=== PATIENT | male | born 1985 | race Two or more races ===

== ENCOUNTER 2019-12-24 23:34 | Inpatient (IN) | payer MEDICAID, OTHER ==
[~2019-12-24] VITALS: Ht 167.6 cm; Wt 79.4 kg
--- NOTE | 2019-12-25 00:01 | NUR ---
PT IN XRAY AT THIS TIME
[2019-12-25 00:03] LABS: MEAN CORPUSCULAR HEMOGLOBIN 28.9 pg (27.5-34.5); MEAN CORPUSCULAR HGB CONC 33.5 g/dL (33.2-36.2); MEAN CORPUSCULAR VOLUME 86.3 fL (81-97); MEAN PLATELET VOLUME 7.5 fL (7.4-10.4); PLATELET COUNT 347 x10^3/uL (130-400); RED BLOOD COUNT 5.13 x10^6/uL (4.38-5.82); RED CELL DISTRIBUTION WIDTH 12.8 % (9.4-14.8)
[2019-12-25 00:14] LABS: ALANINE AMINOTRANSFERASE 51 U/L (12-78); ALBUMIN 3.4 g/dL (3.4-5.0); ANION GAP 9 mmol/L (5-15); CALCIUM 8.8 mg/dL (8.5-10.1); CHLORIDE 104 mmol/L (98-107)
[2019-12-25 00:17] LABS: ALKALINE PHOSPHATASE 100 U/L (45-117); BILIRUBIN,TOTAL 0.8 mg/dL (0.2-1.0); TOTAL PROTEIN 8.4 g/dL (6.4-8.2)
[2019-12-25] MEDS ORDERED: OMNIPAQUE 350 MG/ML, 100ML BOTTLE ONE (00:45)
[2019-12-25 00:56] LABS: BASOPHILS # (AUTO) 0.06 x10^3/uL (0-0.1); BASOPHILS % (AUTO) 0 % (0-1); EOSINOPHILS # (AUTO) 0.11 x10^3/uL (0-0.4); EOSINOPHILS % (AUTO) 1 % (1-7); LYMPHOCYTES # (AUTO) 2.08 x10^3/uL (1-3.4); LYMPHOCYTES % (AUTO) 12 % (22-44); MD SCAN; MONOCYTES # (AUTO) 1.48 x10^3/uL (0.2-0.8); MONOCYTES % (AUTO) 9 % (2-9); NEUTROPHILS # (AUTO) 13.36 x10^3/uL (1.8-6.8); NEUTROPHILS % (AUTO) 78 % (42-75)
[2019-12-25] MEDS ORDERED: SODIUM CHLORIDE 0.9% 1,000 ML IV ONE (01:50)
[2019-12-25] MEDS ORDERED: MORPHINE SULFATE 4 MG/ML, 1ML IVPush PRN (02:00)
[2019-12-25] MEDS ORDERED: ONDANSETRON 2MG/ML, 2ML IVPush PRN ×2 (02:00→10:30)
[2019-12-25] MEDS ORDERED: PIPERACILLIN/TAZO/PMX 3.375GM 50 ML IVPB ONE (02:00)
[2019-12-25] MEDS ORDERED: MORPHINE SULFATE 4 MG/ML, 1ML ONE (02:01)
[2019-12-25] MEDS ORDERED: PIPERACILLIN/TAZO/PMX 3.375GM 50 ML ONE (02:01)
[2019-12-25] MEDS ORDERED: ONDANSETRON 2MG/ML, 2ML ONE ×2 (02:01→10:12)
[2019-12-25 03:26] VITALS: BP 116/69
[2019-12-25 07:01] VITALS: BP 125/69
[2019-12-25] MEDS ORDERED: BUPIVACAINE/PF 0.5% ONE (08:53)
[2019-12-25] MEDS ORDERED: EPINEPHRINE 1 MG/ML, 1ML ONE (08:54)
[2019-12-25] MEDS ORDERED: FENTANYL PF 250 MCG/5ML ONE (09:24)
[2019-12-25] MEDS ORDERED: MIDAZOLAM 1 MG/ML, 2ML ONE (09:24)
[2019-12-25] MEDS ORDERED: SUGAMMADEX 200 MG/2 ML IVPush ONE (09:31)
[2019-12-25] MEDS ORDERED: BUPIVACAINE/PF-EPI 0.5% 1:200K INFIL ONE (09:49)
[2019-12-25] MEDS ORDERED: MEPERIDINE/PF 50 MG/ML ONE (10:05)
[2019-12-25] MEDS ORDERED: ROCURONIUM 10MG/ML,5ML ONE (10:12)
[2019-12-25] MEDS ORDERED: CEFOTETAN PMX 2GM/50ML 50 ML ONE (10:12)
[2019-12-25] MEDS ORDERED: KETOROLAC 30 MG/1 ML ONE (10:12)
[2019-12-25] MEDS ORDERED: LIDOCAINE-MPF 2% ,5ML ONE (10:12)
[2019-12-25] MEDS ORDERED: PROPOFOL 10 MG/ML, 20ML ONE (10:12)
[2019-12-25] MEDS ORDERED: DEXAMETHASONE 4 MG/ML, 1ML ONE (10:12)
[2019-12-25] MEDS ORDERED: DIPHENHYDRAMINE 50 MG/ML, 1ML IVPush PRN (10:30)
[2019-12-25] MEDS ORDERED: CALCIUM CARBONATE 500 MG TAB.CHEW PO PRN (10:30)
[2019-12-25] MEDS ORDERED: LORazepam 2 MG/ML, 1ML IVPush PRN (10:30)
[2019-12-25] MEDS ORDERED: HYDROmorphone 1 MG/ML, 1ML INJ IVPush PRN (10:30)
[2019-12-25] MEDS ORDERED: SCOPOLAMINE PATCH, 1.5MG PATCH.TD72 TD PRN (10:30)
[2019-12-25] MEDS ORDERED: HYDROmorphone 2 MG/ML, 1ML IVPush PRN (11:00)
[2019-12-25] MEDS ORDERED: hydrALAzine 20 MG/ML, 1ML IV PRN (11:00)
[2019-12-25] MEDS ORDERED: ACETAMINOPHEN 325 MG TABLET PO PRN (11:00)
[2019-12-25] MEDS ORDERED: OXYcodone 5 MG/5 ML ORAL.SOL UDC PO PRN (11:00)
[2019-12-25] MEDS ORDERED: PROMETHAZINE 25 MG/ML, 1ML IV PRN (11:00)
[2019-12-25] MEDS ORDERED: MEPERIDINE/PF 25MG/ML,1ML IVPush PRN (11:00)
[2019-12-25] MEDS ORDERED: FENTANYL PF 100 MCG/2ML IV PRN (11:00)
[2019-12-25] MEDS ORDERED: OXYcodone 5 MG/5 ML ORAL.SOL UDC ONE (11:11)
[2019-12-25 13:33] VITALS: BP 133/80
[2019-12-25] MEDS: OXYcodone IR 5MG TABLET PO PRN (14:08)
[2019-12-25] MEDS: IBUPROFEN 800 MG TABLET PO SCH ×2 (16:16→20:13)
[2019-12-25] MEDS: PIPERACILLIN/TAZO/PMX 3.375GM 50 ML IVPB SCH ×2 (16:16→21:28)
[2019-12-25 18:59] VITALS: BP 123/75
[2019-12-25] MEDS: SODIUM CHLORIDE FLUSH 10ML SYR IVF SCH (20:14)
[2019-12-25] MEDS: ENOXAPARIN 30 MG/0.3 ML SQ SCH (20:14)
[2019-12-26 00:20] VITALS: BP 101/57
[2019-12-26 02:54] LABS: MEAN CORPUSCULAR HEMOGLOBIN 28.8 pg (27.5-34.5); MEAN CORPUSCULAR HGB CONC 33.5 g/dL (33.2-36.2); MEAN PLATELET VOLUME 7.8 fL (7.4-10.4); PLATELET COUNT 341 x10^3/uL (130-400); RED CELL DISTRIBUTION WIDTH 12.6 % (9.4-14.8)
[2019-12-26 03:04] LABS: ALBUMIN 2.9 g/dL (3.4-5.0); ANION GAP 9 mmol/L (5-15); CALCIUM 8.9 mg/dL (8.5-10.1); CHLORIDE 107 mmol/L (98-107); CREATININE 0.96 mg/dL (0.7-1.3)
[2019-12-26 03:07] LABS: MD YES
[2019-12-26 03:08] LABS: <PLATELET ESTIMATE> ADEQUATE; <PLT MORPHOLOGY> NORMAL PLT MORPH; ANISOCYTOSIS 1+; BAND#(MANUAL) 0.31 x10^3/uL; BANDS%(MANUAL) 2 % (0-7); LYMPH#(MANUAL) 1.86 x10^3/uL (1-3.4); LYMPHS% (MANUAL) 12 % (22-44); MONOS% (MANUAL) 9 % (2-9); SEG#(MANUAL) 11.94 x10^3/uL (1.8-6.8); SEGS% (MANUAL) 77 % (42-75)
[2019-12-26] MEDS: PIPERACILLIN/TAZO/PMX 3.375GM 50 ML IVPB SCH ×4 (03:35→23:04)
[2019-12-26 04:39] VITALS: BP 94/57
[2019-12-26 06:56] VITALS: BP 101/61
[2019-12-26] MEDS: SODIUM CHLORIDE FLUSH 10ML SYR IVF SCH ×2 (08:42→21:31)
[2019-12-26] MEDS: IBUPROFEN 800 MG TABLET PO SCH ×3 (08:42→21:00)
[2019-12-26] MEDS: ENOXAPARIN 30 MG/0.3 ML SQ SCH ×2 (08:42→21:30)
[2019-12-26 14:45] VITALS: BP 114/69
[2019-12-26 20:10] VITALS: BP 100/61
[2019-12-27] MEDS: OXYcodone IR 5MG TABLET PO PRN (00:50)
[2019-12-27 02:14] VITALS: BP 112/68
[2019-12-27 03:11] LABS: BASOPHILS # (AUTO) 0.03 x10^3/uL (0-0.1); BASOPHILS % (AUTO) 0 % (0-1); EOSINOPHILS # (AUTO) 0.14 x10^3/uL (0-0.4); EOSINOPHILS % (AUTO) 1 % (1-7); LYMPHOCYTES # (AUTO) 1.99 x10^3/uL (1-3.4); LYMPHOCYTES % (AUTO) 16 % (22-44); MD NO; MEAN CORPUSCULAR HEMOGLOBIN 28.8 pg (27.5-34.5); MEAN CORPUSCULAR HGB CONC 33.4 g/dL (33.2-36.2); MEAN CORPUSCULAR VOLUME 86.2 fL (81-97); MEAN PLATELET VOLUME 7.9 fL (7.4-10.4); MONOCYTES # (AUTO) 1.06 x10^3/uL (0.2-0.8); MONOCYTES % (AUTO) 9 % (2-9); NEUTROPHILS # (AUTO) 9.31 x10^3/uL (1.8-6.8); NEUTROPHILS % (AUTO) 74 % (42-75); PLATELET COUNT 375 x10^3/uL (130-400); RED BLOOD COUNT 4.91 x10^6/uL (4.38-5.82); RED CELL DISTRIBUTION WIDTH 12.9 % (9.4-14.8)
[2019-12-27 03:18] LABS: ALBUMIN 2.8 g/dL (3.4-5.0); ANION GAP 6 mmol/L (5-15); CALCIUM 8.6 mg/dL (8.5-10.1); CHLORIDE 107 mmol/L (98-107)
[2019-12-27] MEDS: PIPERACILLIN/TAZO/PMX 3.375GM 50 ML IVPB SCH (04:36)
[2019-12-27 06:35] VITALS: BP 110/69
[2019-12-27] MEDS: ENOXAPARIN 30 MG/0.3 ML SQ SCH (08:00)
[2019-12-27] MEDS: IBUPROFEN 800 MG TABLET PO SCH (08:37)
[2019-12-27] MEDS ORDERED: OXYC5TAB3 PO (08:41)
[2019-12-27] MEDS ORDERED: AMOX1TAB61 PO (08:42)
== END 2019-12-27 09:00 | disposition home or self-care (01) | DRG 340 ==
LOC: ED 12-25 00:04 → EDIP 12-25 01:51 → 4NE 12-25 02:22 → DCLOUNGE 12-27 08:45
PROVIDERS: ADMIT Surgery; ATTEND Surgery
PROC: 0W9J0ZZ Drainage of Pelvic Cavity, Open Approach (ICD-10-PCS; 2019-12-25)
PROC: 0DTJ4ZZ Resection of Appendix, Percutaneous Endoscopic Approach (ICD-10-PCS; principal; 2019-12-25 10:00)
DX: K35.33 Acute appendicitis with perforation, localized peritonitis, and gangrene, with abscess (principal); K59.00 Constipation, unspecified; K76.0 Fatty (change of) liver, not elsewhere classified; Z91.040 Latex allergy status; Z83.3 Family history of diabetes mellitus; Z80.42 Family history of malignant neoplasm of prostate
CPT/HCPCS: 36415; 74021; 96374; 96375; 99285; J3490; S0020; 74177; 76700; 80048; 80053; 82040; 83690; 85025; 88304; G0378; J0171; J1100; J1650; J1885; J2175; J2250; J2405; J2543; J2704; J3010; Q9967; J2270; J7030